=== PATIENT | female | born 1985 ===

== ENCOUNTER 2020-12-07 22:04 | Inpatient (IN) | payer SELFPAY ==
[2020-12-07] MEDS ORDERED: ACETAMINOPHEN 325 MG TAB PO PRN (22:51)
[2020-12-07] MEDS ORDERED: CARBOPROST TROMETHAMINE 250 MCG/1 ML INJ IM PRN (22:51)
[2020-12-07] MEDS ORDERED: METHYLERGONOVINE MALEATE 0.2 MG/ML VIAL IM PRN (22:51)
[2020-12-07] MEDS ORDERED: MINERAL OIL 30 ML ORAL LIQD PO PRN (22:51)
[2020-12-07] MEDS ORDERED: ePHEDrine SULFATE 50 MG/1 ML INJ IV PRN (22:51)
[2020-12-07] MEDS ORDERED: LIDOCAINE (2%) 20 MG/1 ML VIAL 20 ML MDV INFILTRATI ONE (22:51)
[2020-12-07] MEDS ORDERED: fentaNYL 100 MCG/2 ML INJ IV PRN (22:51)
[2020-12-07] MEDS ORDERED: TERBUTALINE 1 MG/1 ML INJ SUB-Q PRN (22:51)
[2020-12-07] MEDS ORDERED: miSOPROStol 200 MCG TAB PR PRN (22:51)
[2020-12-07] MEDS ORDERED: OXYTOCIN 10 UNIT/1 ML INJ IM PRN (22:51)
[2020-12-07] MEDS ORDERED: BUTORPHANOL 2 MG/1 ML INJ IV PRN ×2 (22:51)
[2020-12-07] MEDS ORDERED: LOPERAMIDE 2 MG CAP PO PRN (22:51)
[2020-12-07] MEDS ORDERED: OXYTOCIN DRIP 30 UNITS/500 ML BAG IV SCH ×2 (23:00)
[2020-12-07] MEDS ORDERED: LACTATED RINGERS 1,000 ML IV SCH (23:00)
--- NOTE | 2020-12-07 23:16 | History and Physical Report ---
History of Present Illness Date of examination: 12/07/20 Date of admission: 12/07/2020 Chief complaint: c/o uc times several hours History of present illness: 35 y/o presents to [facility] @ 40.6 wks with c/o uc times several hours. She denies LOF or VB and admits to active FM. Pt initiated her pnc @ [facility] @ 14 wks and had no complications. She has a hx of anemia and hematuria. Pt was referred to urology re same. Surgical/social/family hx is unremarkable. She denies any problems with past pregs. Her GBS is neg. Pt was found to be in early labor and garrett regularly. She was was admitted to L&D for delivery being that she was scheduled for an IOL for postdates tomm. Past History Past Medical History: other (hematuria with anemia) Past Surgical History: no surgical history Family/Genetic History: none Social history: , full code - Obstetrical History Expected Date of Delivery: 12/01/20 Actual Gestation: 40 Week(s) 6 Day(s) : 3 Para: 2 Hx # Term Pregnancies: 2 Number of Living Children: 2 Medications and Allergies Allergies Allergy/AdvReac Type Severity Reaction Status Date / Time No Known Allergies Allergy Unverified 12/07/20 22:52 Review of Systems All systems: negative Eyes: normal appearance Ears, nose, mouth and throat: deferred Breasts: normal Genitourinary: normal appearance Rectal Exam: deferred - Vital Signs Vital signs: Vital Signs Pulse BP 67 136/89 12/07/20 22:34 12/07/20 22:34 Temp Pulse Resp BP Pulse Ox 97.8 F 67 18 136/89 12/07/20 22:51 12/07/20 22:34 12/07/20 22:51 12/07/20 22:34 - Physical Exam Breasts: Positive: normal Abdomen: Positive: normal appearance, soft, normal bowel sounds, other (gravid) Genitourinary (Female): Positive: normal external genitalia, normal perenium Vulva: both: normal Vagina: Positive: normal moisture Uterus: Positive: enlarged, normal contour, other (gravid) Adnexa: both: normal Anus/Rectum: Positive: normal perianal skin Extremities: Positive: normal - Obstetrical FHR: auscultation normal, category 1 Uterine Contraction Monitor Mode: External Cervical Dilatation: 2 Cervical Effacement Percentage: 50 station: -3 Uterine Contraction Pattern: Regular Uterine Tone Measurement Phase: Resting Uterine Contraction Intensity: Mild Results All other labs normal. Assessment and Plan A: IUP@ 40.6 wks postdates H/O hematuria with anemia GBS neg p: Admit to L&D Continuos monitoring Epidural/Pain med prn Start Pitocin if uc slows Anticipate - Patient Problems (1) Supervision of normal IUP (intrauterine ) in multigravida Current Visit: Yes Status: Acute
[2020-12-07 23:26] LABS: Hematocrit 38.3 % (30.3-42.9); Hemoglobin 13.1 gm/dl (10.1-14.3); Mean Corpuscular HGB Conc 34 % (30-34); Mean Corpuscular Volume 85 fl (79-97); Platelet Count 250 K/mm3 (140-440); Red Cell Distribution Width 15.6 % (13.2-15.2)
--- NOTE | 2020-12-08 02:32 | Procedure Note ---
OB Delivery Note - Delivery Date of Delivery: 12/08/20 Surgeon: LUCILA SCOTT Estimated blood loss: 100cc - Vaginal Delivery presentation: vertex Delivery position: OA Intrapartum events: meconium, precipitous labor- <3hr Delivery induction: none Delivery monitor: external FHT, external uterine Route of delivery: Delivery placenta: spontaneous Delivery cord: nuchal cord, 3 umbilical vessels Episiotomy: none Delivery laceration: 1st degree Anesthesia: intravenous Delivery comments: Precipitous of a viable live female in OA position. Head delivered spontaneously. Loose nuchal cord was reduced over 's head and the rest of the infant's body was delivered with ease over a superficial 1st degree lac. direct to mom's chest for skin to skin bonding. Delayed cord clamping then cord was clamped x2 and cut. Cord blood was obtained. Infant was taken to radiant warmer by NICU nurse for an initial asses 8/9. FF@ U2 and displaced to mom's right side. Homeostasis was maintained with fundal massage and IV Pitocin. Straight cath revealed small amt cloudy urine. UA C&S was collected and sent to the lab. EBL 100cc FW 3540 Gms. Mom and baby were left in stable condition with nurses. - A at 1 minute: 8 at 5 minutes: 9 Infant Gender: Female
[2020-12-08] MEDS ORDERED: PROMETHAZINE 25 MG RECT SUPP PR PRN (05:46)
[2020-12-08] MEDS ORDERED: LANOLIN/ZINC/DIMETHICONE (LANSINOH) 7 GM TP PRN (05:46)
[2020-12-08] MEDS ORDERED: WITCH HAZEL/ GLYCERIN PAD TP PRN (05:46)
[2020-12-08] MEDS ORDERED: ONDANSETRON 4 MG/2 ML INJ IV PRN (05:46)
[2020-12-08] MEDS ORDERED: MAGNESIUM HYDROXIDE (MOM) ORAL LIQD UDC PO PRN (05:46)
[2020-12-08] MEDS ORDERED: oxyCODONE /ACETAMINOPHEN 5-325MG TAB PO PRN (05:46)
[2020-12-08] MEDS ORDERED: PROMETHAZINE 25 MG TAB PO PRN (05:46)
[2020-12-08] MEDS ORDERED: diphenhydrAMINE 25 MG CAP PO PRN (05:46)
[2020-12-08] MEDS: IBUPROFEN 600 MG TAB PO SCH ×3 (05:56→17:43)
[2020-12-08 07:07] LABS: Bacteria,Urine 1+ /HPF (Negative); Bilirubin,Urine NEG (Negative); Blood,Urine LG (Negative); Color,Urine Amber (Yellow); Hyaline Casts,Urine 92 /LPF; Mucus,Urine 3+ /HPF; Red Blood Cell Casts,Urine 32 /LPF
[2020-12-08 07:10] LABS: Protein,Urine >500 mg/dL (Negative)
[2020-12-08 07:11] LABS: RBC,Urine > 182.0 /HPF (0.0-6.0)
[2020-12-08] MEDS ORDERED: cefTRIAXone/NS 1 GM/50 ML 1 GM/50 ML BAG IV SCH (12:00)
--- NOTE | 2020-12-08 12:02 | Progress Note ---
Assessment and Plan A: day 1 S/P . P: Continue routine care. Await urine C&S results. Subjective - Subjective Date of service: 12/08/20 Principal diagnosis: day 1 S/P Interval history: Urine C&S pending; patient's IV is out so started patient on Augmentin. Patient reports: appetite normal, voiding normally, pain well controlled, flatus, ambulating normally, no dizzy ambulation, no nauseated [place]: doing well Objective - Vital Signs Latest vital signs: Vital Signs Temp Pulse Resp BP BP Pulse Ox Pulse Ox 12/08/20 08:51 98.5 F 74 20 113/67 97 12/08/20 08:00 98 12/08/20 05:56 18 12/08/20 04:30 98.8 F 64 18 115/55 96 98 12/08/20 04:01 80 109/59 74 L 12/08/20 03:56 76 96 12/08/20 03:51 73 96 12/08/20 03:46 74 96 12/08/20 03:45 74 116/58 12/08/20 03:41 73 96 12/08/20 03:36 76 96 12/08/20 03:31 71 96 12/08/20 03:30 75 108/58 12/08/20 03:26 82 97 12/08/20 03:21 81 97 12/08/20 03:16 82 96 12/08/20 03:15 82 119/62 12/08/20 03:11 74 95 12/08/20 03:06 83 96 12/08/20 03:01 81 96 12/08/20 03:00 80 112/58 12/08/20 02:56 86 96 12/08/20 02:51 84 97 12/08/20 02:46 86 96 12/08/20 02:45 82 110/60 12/08/20 02:41 82 96 12/08/20 02:36 78 96 12/08/20 02:31 88 97 12/08/20 02:30 88 111/60 12/08/20 02:26 90 97 12/08/20 02:21 92 H 97 12/08/20 02:16 89 96 12/08/20 02:15 94 H 105/58 12/08/20 02:11 93 H 96 12/08/20 02:08 88 111/55 12/08/20 02:06 86 95 12/08/20 02:01 90 97 12/08/20 01:56 111 H 97 12/08/20 01:51 84 97 12/08/20 01:46 77 98 12/08/20 01:41 76 98 12/08/20 01:36 85 97 12/08/20 01:31 80 97 12/08/20 01:26 90 96 12/08/20 01:21 76 97 12/08/20 01:16 75 98 12/08/20 01:11 71 98 12/08/20 01:06 75 95 12/08/20 01:01 83 97 12/08/20 00:56 96 H 97 12/08/20 00:51 74 95 12/08/20 00:46 91 H 96 12/08/20 00:41 70 98 12/08/20 00:36 74 96 12/08/20 00:31 77 96 12/08/20 00:26 95 H 96 12/08/20 00:21 89 96 12/08/20 00:17 93 H 94 12/08/20 00:16 83 97 12/08/20 00:11 89 94 12/08/20 00:08 84 91 12/08/20 00:06 72 96 12/08/20 00:04 18 12/08/20 00:01 75 98 12/07/20 23:56 73 98 12/07/20 23:51 75 18 120/73 120/73 98 98 12/07/20 23:46 69 98 12/07/20 23:41 72 98 12/07/20 23:36 85 97 12/07/20 23:31 78 98 12/07/20 23:30 75 87 12/07/20 23:26 64 98 12/07/20 23:21 74 98 12/07/20 23:16 70 99 12/07/20 23:11 66 99 12/07/20 22:51 97.8 F 18 12/07/20 22:34 67 136/89 Intake and Output 12/07/20 12/08/20 12/08/20 23:59 07:59 15:59 Other: Weight 72.575 kg - Exam Cardiovascular: Present: Regular rate Lungs: Present: Clear to auscultation Abdomen: Present: normal appearance, soft, normal bowel sounds. Absent: distention, tenderness, guarding, rigidity Uterus: Present: normal, firm, fundal height below umbilicus. Absent: bogginess, tenderness Extremities: Absent: tenderness, edema - Labs Labs: Abnormal lab results 12/07/20 12/08/20 Range/Units 23:00 03:05 WBC 15.0 H (4.5-11.0) K/mm3 RDW 15.6 H (13.2-15.2) % Urine WBC (Auto) 56.0 H (0.0-6.0) /HPF U Epithel Cells (Auto) 213.0 H (0-13.0) /HPF
[2020-12-08] MEDS: AMOXICILLIN/K CLAV 500/125MG TAB PO SCH ×2 (13:07→23:30)
[2020-12-08 20:08] LABS: Hematocrit 35.1 % (30.3-42.9); Hemoglobin 11.3 gm/dl (10.1-14.3)
[2020-12-09] MEDS: IBUPROFEN 600 MG TAB PO SCH ×4 (05:10→23:57)
[2020-12-09] MEDS: AMOXICILLIN/K CLAV 500/125MG TAB PO SCH ×2 (09:09→21:51)
--- NOTE | 2020-12-09 09:38 | Progress Note ---
Assessment and Plan pt doing well d/c in am. Subjective - Subjective Date of service: 12/09/20 Principal diagnosis: day 1 S/P Interval history: see H&p. Patient reports: appetite normal [place]: doing well Objective - Vital Signs Latest vital signs: Vital Signs Temp Pulse Resp BP Pulse Ox Pulse Ox 12/09/20 08:01 97.5 F L 66 18 105/74 98 12/08/20 23:28 97.3 F L 73 20 112/65 96 12/08/20 20:44 98 12/08/20 16:27 98.2 F 77 20 112/71 95 Intake and Output 12/08/20 12/09/20 12/09/20 23:59 07:59 15:59 Intake Total 240 480 Balance 240 480 Intake: Oral 240 Intake, Free Water 480 Other: Total, Intake Amount 240 # Voids Void 2 1 - Exam Abdomen: Present: normal appearance, soft Extremities: Present: normal Incision: Present: normal, dry, intact
[2020-12-10] MEDS: IBUPROFEN 600 MG TAB PO SCH (05:17)
--- NOTE | 2020-12-10 09:46 | Progress Note ---
Assessment and Plan A: day 2 S/P . P: Discharge patient home today. Discussed with patient discharge instructions and warning signs. Advised patient to continue to take her vitamin daily at home. Advised patient to avoid intercourse, lifting, and housework for 6 weeks. Advised patient to follow up at [facility] in 6 weeks. Patient voiced understanding of all instructions. Subjective - Subjective Date of service: 12/10/20 Principal diagnosis: day 2 S/P Interval history: Urine C&S negative. Patient desires discharge home today. Patient reports: appetite normal, voiding normally, pain well controlled, flatus, ambulating normally, no dizzy ambulation, no nauseated : doing well, nursing well Objective - Vital Signs Latest vital signs: Vital Signs Temp Pulse Resp BP Pulse Ox Pulse Ox 12/10/20 08:05 96 12/10/20 07:59 97.5 F L 60 18 122/70 96 12/10/20 05:17 18 12/10/20 00:53 97.7 F 59 L 20 118/64 96 12/09/20 23:57 20 12/09/20 19:35 98 12/09/20 18:13 16 12/09/20 16:32 97.7 F 67 18 113/71 95 Intake and Output 12/09/20 12/10/20 12/10/20 23:59 07:59 15:59 Intake Total 360 120 Balance 360 120 Intake: Intake, Free Water 360 120 Other: # Voids Void 2 1 - Exam Cardiovascular: Present: Regular rate Lungs: Present: Clear to auscultation Abdomen: Present: normal appearance, soft. Absent: distention, tenderness, guarding, rigidity Uterus: Present: normal, firm, fundal height below umbilicus. Absent: bogginess, tenderness Extremities: Present: normal. Absent: tenderness, edema
--- NOTE | 2020-12-10 09:50 | Discharge Summary ---
Providers - Providers Date of Admission: 12/07/20 22:51 Date of discharge: 12/10/20 Attending physician: BHANU DC MD Primary care physician: BHANU DC MD Hospitalization Reason for admission: active labor Delivery: Laceration: 1st degree Other procedures: none complications: none Discharge diagnosis: IUP at term delivered [place] baby: female Pertinent studies: Labs Hospital course: Stable hospital course Condition at discharge: Good Disposition: 01 HOME / SELF CARE / HOMELESS Plan - Provider Discharge Summary Activity: routine, no sex for 6 weeks, no heavy lifting 4 weeks, no strenuous exercise Diet: routine Instructions: routine Additional instructions: Continue taking your vitamins and iron supplements at home. Call your doctor immediately for: * Fever > 100.5 * Heavy vaginal bleeding ( >1 pad per hour) * Severe persistent headache * Shortness of breath * Reddened, hot, painful area to leg or breast - Follow up plan Follow up: BHANU DC MD [Primary Care Provider] - 6 Weeks
[2020-12-10] MEDS: AMOXICILLIN/K CLAV 500/125MG TAB PO SCH (10:33)
[2020-12-10 13:28] VITALS: BP 125/77
== END 2020-12-10 12:30 | disposition home or self-care (01) | DRG 807 ==
LOC: TRG 22:04 → APU 22:06 → TRG 22:51 → LD 22:51 → OB 12-08 04:12
PROVIDERS: ADMIT Obstetrics & Gynecology; ATTEND Obstetrics & Gynecology
PROC: 10E0XZZ Delivery of Products of Conception, External Approach (ICD-10-PCS; principal; 2020-12-08)
DX: O77.0 Labor and delivery complicated by meconium in amniotic fluid (principal); Z37.0 Single live birth; O48.0 Post-term pregnancy; Z3A.40 40 weeks gestation of pregnancy; O62.3 Precipitate labor; O70.0 First degree perineal laceration during delivery; O69.81X0 Labor and delivery complicated by cord around neck, without compression, not applicable or unspecified; Z20.822 Contact with and (suspected) exposure to COVID-19
CPT/HCPCS: 36415; 81001; 85014; 85018; 85027; 86850; 86900; 86901; 87086; G0378; A6250; J0595; J7120; U0003